=== PATIENT | male | born 1980 | race Caucasian/White ===

== ENCOUNTER 2022-02-23 15:22 | Emergency (ER) | payer SELFPAY ==
[~2022-02-23] VITALS: Ht 190.5 cm; Wt 92.5 kg
--- NOTE | 2022-02-23 15:39 | NUR ---
Patient to ER bed 01 to gown for evaluation. Side rails up.
[2022-02-23 15:40] VITALS: BP_SYST 117
--- NOTE | 2022-02-23 15:42 | NUR ---
Pt brought by self,A&Ox4, pt presents to ER with R arm/irritation after a cast was placed 1 month 1/2 ago while he was in halfway, VSS, pt moving fingers, skin pink and warm, cap refill <3.
--- NOTE | 2022-02-23 15:43 | NUR ---
Dr Musa evaluating patient at bedside
--- NOTE | 2022-02-23 15:59 | NUR ---
DR ALVAREZ AT BEDSIDE AND REMOVING CAST WITH CAST REMOVER.
--- NOTE | 2022-02-23 16:01 | NUR ---
PT REQUESTING FOR XRAY, DR ALVAREZ INFORMED.
--- NOTE | 2022-02-23 16:28 | NUR ---
PT SIZED AND EVALUATED FOR ARM SPLINT AND SLING. DISTAL PULSES PRESENT CAP REFILL <3SEC.
--- NOTE | 2022-02-23 16:45 | NUR ---
Patient given written and verbal discharge instructions and verbalizes understanding. ER MD discussed with patient the results and treatment provided. Patient in stable condition. ID arm band removed. Opportunity for questions provided and answered. Medication side effect fact sheet provided.
[2022-02-23 16:46] VITALS: BP_SYST 117
== END 2022-02-23 16:45 | disposition home or self-care (01) ==
LOC: SED 15:22
DX: S52.601D Unspecified fracture of lower end of right ulna, subsequent encounter for closed fracture with routine healing (principal); W18.39XD Other fall on same level, subsequent encounter
CPT/HCPCS: 73090; 99283